=== PATIENT | female | born 1965 | race Caucasian/White ===

== ENCOUNTER 2019-02-01 15:54 | Emergency (ER) | payer MEDICAID ==
[~2019-02-01] VITALS: Ht 177.8 cm; Wt 158.8 kg
[2019-02-01 16:35] VITALS: BP 113/83
--- NOTE | 2019-02-01 16:38 | NUR ---
TO LOBBY A/W BED VIA W/C
--- NOTE | 2019-02-01 18:31 | NUR ---
PT TO BED 7 VIA W/C
--- NOTE | 2019-02-01 18:54 | NUR ---
C/O BLE FOOT PAIN S/P FALL ON MONDAY. PT REPORTS TO HAVE FELL FORWARD WHEN AMBULATUNG ON MONDAY AND TOES ON RIGHT FOOT BENT BACKWARDS. PMH: HEART FAILURE, COPD, CELLULITIS MEDS LIST IS EXTENIVE, INCLUDES MANY PAIN MEDS
--- NOTE | 2019-02-01 19:35 | NUR ---
REPORT TO TYLER VIEIRA
--- NOTE | 2019-02-01 19:35 | NUR ---
REPORT RECEIVED FROM DARIEL DIAZ.
--- NOTE | 2019-02-01 20:08 | NUR ---
TWO [employer]IUM WOMAN ORTHO SHOES GIVEN, ONE FOR EACH FOOT.
[2019-02-01 20:24] VITALS: BP 110/65
--- NOTE | 2019-02-01 20:24 | NUR ---
Patient discharged with v/s stable. Written and verbal after care instructions given and explained. Patient verbalized understanding. Wheel Chair Assisted with to car. All questions addressed prior to discharge. Advised to follow up with PMD.
== END 2019-02-01 20:24 | disposition home or self-care (01) ==
LOC: MED 15:54
DX: S92.902A Unspecified fracture of left foot, initial encounter for closed fracture (principal); E66.01 Morbid (severe) obesity due to excess calories; J44.9 Chronic obstructive pulmonary disease, unspecified; I50.9 Heart failure, unspecified; W18.39XA Other fall on same level, initial encounter; Y92.89 Other specified places as the place of occurrence of the external cause; Y93.89 Activity, other specified; Y99.8 Other external cause status
CPT/HCPCS: 73630; 99283